=== PATIENT | female | born 1965 ===

== ENCOUNTER 2017-05-29 11:42 | Emergency (ER) | payer OTHER, SELFPAY ==
[2017-05-29 11:43] VITALS: BMI 19.3
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
[2017-05-29] MEDS ORDERED: Lidocaine 2% Inj (20ml) INFIL ONE (13:28)
[2017-05-29] MEDS ORDERED: Lidocaine 2% Inj (20ml) ONE (13:31)
--- NOTE | 2017-05-29 13:43 | RAD ---
PROCEDURE: Radiographs of the Right Forearm HISTORY: fall COMPARISON: None available. TECHNIQUE: Frontal and lateral views obtained. FINDINGS: BONES: A comminuted distal radial fracture with intra-articular extension is noted. Mild impaction is inferred. There is overriding. No gross displacement of fracture fragments and no gross angulation deformity suggested. JOINT SPACES: Unremarkable. OTHER FINDINGS: None. IMPRESSION: A distal radial fracture with intra-articular extension no displacement or angulation deformity. Some impaction and overriding inferred Findings were discussed with Dr. Godoy on 05/29/2017 at 1:40 p.m. at the time of the call, no ER physician preliminary information was in the system to comment degree or disagree on
--- NOTE | 2017-05-29 15:15 | RAD ---
PROCEDURE: Right Wrist Radiographs. HISTORY: fall COMPARISON: Right forearm FINDINGS: BONES: A comminuted distal radial fracture with radiocarpal extension, some impaction as well some explain is suggested. One of the fracture fragments appears approximately 4 to 5 mm displaced towards the L not on the oblique view there is a trace volar apical angulation of the fractured apex and some trace dorsal tilting of the displaced radial fracture fragment closest to the distal ulna segment. JOINTS: No dislocation. SOFT TISSUES: Overlying soft tissue swelling present OTHER FINDINGS: None. IMPRESSION: Distal radial comminuted fracture with impaction and mild displacement of some of the fractured fragments. Intraarticular extension. Comments: , this wrist exam is better suited for evaluating any angulation or displacement than the prior forearm study
--- NOTE | 2017-05-29 15:27 | RAD ---
PROCEDURE: Right Wrist Radiographs. HISTORY: post reduction COMPARISON: Pre reduction right wrist FINDINGS: BONES: A comminuted distal radial fracture with radiocarpal extension, some impaction is suggested. The prior fracture fragments displaced approximately 4 to 5 mm ulna on the oblique view appears less displaced on postreduction imaging through casting. The trace dorsal tilting of the displaced radial fracture fragment is similar a small fracture fragment of ulnar styloid noted through casting. No displacement greater than 1 mm of it is suggested. JOINTS: No dislocation. SOFT TISSUES: Normal. OTHER FINDINGS: None. IMPRESSION: Post reduction of prior fractures referenced above Alignment as above
[2017-05-29 15:46] VITALS: RESP 16
--- NOTE | 2017-05-29 16:18 | RAD ---
Right wrist radiographs Comparison: Right wrist radiographs performed earlier the same day Indication: Postreduction Findings: Images are obtained through a cast which obscures osseous detail. Comminuted distal radial and ulna styloid fractures re-identified. Alignment appears similar to prior study with dorsal tilting of the displaced radial fracture fragment. Soft tissue swelling. Impression: Postreduction images with alignment as above.
[2017-05-29 16:21] VITALS: O2SAT 99
[2017-05-29 16:40] VITALS: BP 102/66; PULSE 64; TEMP 98.1
--- NOTE | 2017-05-30 11:42 | CP.PCM.CON ---
History of Present Illness - History of Present Illness History of Present Illness: Orthopedic consultation Dr. Coughlin 52F complains of right wrist pain after fall 2 days prior to presenting to ED. RHD. Denies numbness/tingling. Denies pain in other extremities, denies prior right wrist injury. Review of Systems - Review of Systems All systems: reviewed and no additional remarkable complaints except - Constitutional Additional comments: no fever/chills - Musculoskeletal Musculoskeletal: As Per HPI - Integumentary Additional comments: skin intact, +bruising - Neurological Neurological: As Per HPI - Hematologic/Lymphatic Hematologic: absent: As Per HPI, Easy Bleeding, Easy Bruising, Lymphadenopathy, Other Past Patient History - Past Medical History & Family History Past Medical History?: Yes Past Family History: Reviewed and not pertinent - Past Social History Smoking Status: Never Smoked - CARDIAC Hx Hypercholesterolemia: Yes - PULMONARY Hx Respiratory Disorders: No - NEUROLOGICAL Hx Migraine: Yes - HEENT Hx HEENT Problems: No - RENAL Hx Chronic Kidney Disease: No - ENDOCRINE/METABOLIC Hx Endocrine Disorders: No - HEMATOLOGICAL/ONCOLOGICAL Hx Blood Disorders: No - INTEGUMENTARY Hx Dermatological Problems: No - MUSCULOSKELETAL/RHEUMATOLOGICAL Hx Musculoskeletal Disorders: No - GASTROINTESTINAL Hx Gastrointestinal Disorders: No - GENITOURINARY/GYNECOLOGICAL Hx Genitourinary Disorders: Yes Other/Comment: PID, LEFT OVARIAN CYST - PSYCHIATRIC Hx Substance Use: No - SURGICAL HISTORY Hx Surgeries: Yes Hx Dilation and Curettage: Yes - ANESTHESIA Hx Anesthesia: Yes Hx Anesthesia Reactions: No Hx Malignant Hyperthermia: No Meds Allergies/Adverse Reactions: Allergies Allergy/AdvReac Type Severity Reaction Status Date / Time No Known Allergies Allergy Verified 05/29/17 11:50 Physical Exam - Constitutional Appears: Well, In Acute Distress - Head Exam Head Exam: ATRAUMATIC - Respiratory Exam Respiratory Exam: NORMAL BREATHING PATTERN - Expanded Upper Extremities Exam Right Elbow exam: normal inspection (non tender to elbow, no swelling) Forearm Wrist exam: ecchymosis, swelling, tenderness Neuro motor exam: finger 2-5 abduction intact, thumb abduction, thumb IP flexion intact, thumb opposition intact, wrist extension intact Neurosensory exam: median nerve intact, radial nerve intact, ulnar nerve intact Vascular exam: radial pulse - Neurological Exam Neurological exam: Alert, Oriented x3 - Psychiatric Exam Psychiatric exam: Normal Affect, Normal Mood - Skin Skin Exam: Dry, Intact, Warm Additional comments: +swelling and ecchymosis Results - Vital Signs Recent Vital Signs: Last Vital Signs Temp 98.1 F 05/29/17 16:39 Pulse 64 05/29/17 16:39 Resp 16 05/29/17 16:39 BP 102/66 05/29/17 16:39 Pulse Ox 99 05/29/17 16:39 - Impressions Impression: Patient Name / ID : VICKEY KIRKLAND / [id number] Exam Date : 05/29/2017 12:02:52 ( Addendum_Approved ) Study Comment : Sex / Age : F / 52Y Creator : Cindy Holloway Dictator : Jenifer Ordaz Outsole Skiver : Agricultural Equipment Test Engineer : Jenifer Ordaz Approver2 : Report Date : 05/29/2017 12:16:26 My Comment : ADDENDUM: Is also fracture of the ulnar styloid no displacement greater than 1 mm suggested [ Addendum Report Added by Jenifer Ordaz at 05/29/2017 15:16:02 ] PROCEDURE: Right Wrist Radiographs. HISTORY: fall COMPARISON: Right forearm FINDINGS: BONES: A comminuted distal radial fracture with radiocarpal extension, some impaction as well some explain is suggested. One of the fracture fragments appears approximately 4 to 5 mm displaced towards the L not on the oblique view there is a trace volar apical angulation of the fractured apex and some trace dorsal tilting of the displaced radial fracture fragment closest to the distal ulna segment. JOINTS: No dislocation. SOFT TISSUES: Overlying soft tissue swelling present OTHER FINDINGS: None. IMPRESSION: Distal radial comminuted fracture with impaction and mild displacement of some of the fractured fragments. Intraarticular extension. Comments: , this wrist exam is better suited for evaluating any angulation or displacement than the prior forearm study Assessment & Plan (1) Distal radius fracture, right Assessment and Plan: risks/benefits/alt of fracture reduction and splinting explained to patient who verbalized understanding and consented to procedure closed reduction of right distal radius fracture attempted, however initial reduction reviewed with Dr. Coughlin and states that reduction is insufficient and repeat reduction indicated. Longitudinal traction with weights performed with sedation via nitrous oxide, second closed reduction attempted, sugar tong splint applied. post reduction xrays at that time showed acceptable reduction of right distal radius fracture with improved height and reduction of dorsal angulation. Sugar tong splint applied, NVID pre and post reductions. keep splint dry and intact, elevation, pain medication per ED patient to f/u Dr. Coughlin within 1 week call for appointment. If fracture reduction is maintained, will be treated non operatively with casting once swelling improves. If reduction lost, patient may be indicated for surgery, so instructed importance of regular follow up and maintaining splint/sling. above d/w Dr. Coughlin, agrees with above Status: Acute Procedures Attestation:: I certify that I have explained the specified Operation(s) or Procedure(s), risks, benefits and reasonable alternatives to the Patient and/or other person responsible. The opportunity was given to ask questions and all questions answered - Orthopedic Fracture Reduction Fracture #1 Consent Obtained: verbal consent Time Out Performed: Yes Side: right Fracture Reduction Location: radius Analgesia: hematoma block Technique: direct manipulation, other (traction) Post Reduction X-rays Demonstrate: acceptable reduction Post-Reduction Neuro Exam: intact Post-Reduction Vascular Exam: intact Splint Applied: Yes (sugar tong) Patient Tolerated Procedure: well - Orthopedic Splinting/Casting Injury #1 Side: right Upper Extremity Injury Location: wrist Upper Extremity Immobilizer: sugar tong splint
== END 2017-05-29 16:50 | disposition home or self-care (01) ==
LOC: C.ER 11:42
DX: S52.591A Other fractures of lower end of right radius, initial encounter for closed fracture (principal); W00.0XXA Fall on same level due to ice and snow, initial encounter

== ENCOUNTER 2017-06-02 15:21 | Emergency (ER) | payer OTHER ==
[2017-06-02 15:37] VITALS: BMI 25.0
[2017-06-02 15:41] VITALS: BP 109/59; PULSE 63; RESP 18; TEMP 98; O2SAT 99
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
== END 2017-06-02 16:15 | disposition home or self-care (01) ==
LOC: C.ER 15:21
DX: S52.501G Unspecified fracture of the lower end of right radius, subsequent encounter for closed fracture with delayed healing (principal); X58.XXXD Exposure to other specified factors, subsequent encounter